=== PATIENT | male | born 1945 | race Caucasian/White ===

== ENCOUNTER 2016-10-08 08:08 | Day surgery (SDC) | payer MEDICARE, BC ==
[2016-10-08] MEDS ORDERED: Lactated Ringers 1,000 ML IV SCH (08:45)
[2016-10-08] MEDS ORDERED: fentaNYL 100 MCG/2 ML SDV ONE (09:03)
[2016-10-08] MEDS ORDERED: Propofol 200 MG/20 ML SDV ONE (09:04)
[2016-10-08] MEDS ORDERED: Midazolam 1 MG/ML 2 ML SDV ONE (09:04)
[2016-10-08] MEDS ORDERED: Ampicillin 2 GM in Sodium Chloride 0.9% 100 ML IV ONE (09:15)
[2016-10-08 10:29] VITALS: BP 121/79
--- NOTE | 2016-10-09 08:23 | OR ---
DATE OF PROCEDURE: 10/08/2016 PREOPERATIVE DIAGNOSIS: History of colon polyps. POSTOPERATIVE DIAGNOSES: 1. Rectal polyp. 2. History of colon polyps. PROCEDURE PERFORMED: Colonoscopy to the cecum with biopsy resection of small rectal polyp. SURGEON: Tommy Norton MD ANESTHESIA: IV anesthesia with monitored anesthesia care. INDICATION: This 71-year-old white male is here for a colonoscopy because of a history of colon polyps. His last colonoscopic exam was done three years ago. I counseled him for the procedure including risks and alternatives, and he gave his informed consent to proceed. DESCRIPTION OF PROCEDURE: The patient was placed in the left lateral decubitus position. IV anesthesia was administered by the Anesthesia Service. Time-out was held. A rectal exam was performed, which was unremarkable. The flexible video Olympus colonoscope was introduced through his anus, up his rectum, and out his colon all the way to the cecum. Once the cecum was reached, the scope was slowly withdrawn examining the mucosa throughout. No mucosal abnormalities were noted until we reached the rectum. Here, we saw a small polyp which was removed with a few bites of the biopsy forceps. The scope was retroflexed with the distal rectum appearing unremarkable save for some hemorrhoid tissue. The scope was straightened and removed. He tolerated the procedure well. Tommy Norton MD /[id number] MTDD
== END 2016-10-08 10:47 | disposition home or self-care (01) ==
LOC: JP.SDS 08:08 → EEVIPCON 08:08 → JP.SDS 10:47
PROVIDERS: ATTEND Surgery
DX: Z12.11 Encounter for screening for malignant neoplasm of colon (principal); Z86.010 Personal history of colon polyps; K62.1 Rectal polyp; Z88.1 Allergy status to other antibiotic agents
CPT/HCPCS: 45380; 88305; J0290; J2250; J2704; J3010; J7030; J7120

== ENCOUNTER 2020-10-10 19:45 | Emergency (ER) | payer MEDICARE, BC ==
[2020-10-10 20:30] VITALS: BP 188/67; PULSE 68
--- NOTE | 2020-10-10 22:18 | EDM.PDOC ---
ED HPI GENERAL MEDICAL PROBLEM - General Chief Complaint: General Stated Complaint: POSSIBLE BLOOD CLOT IN THIGH RIGHT LEG Time Seen by Provider: 10/10/20 20:30 Source of Information: Reports: Patient, Family History Limitations: Reports: No Limitations - History of Present Illness INITIAL COMMENTS - FREE TEXT/NARRATIVE: 75-year-old male arrives with concerns about pain in his right leg. He was sitting on a chair tonight when he suddenly developed a very sharp pain in his right buttock and right posterior thigh, then after a few minutes developed numbness in his leg. He got up and walked around a little bit, and sat down again and waited thinking it would go away but it was persistent and he started worrying about a blood clot so came in to be seen. 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 No peripheral edema. Still somewhat sore in the posterior right thigh and popliteal area. Onset: Sudden (Pain started fairly suddenly about 3 hours ago, much improved now) Location: Reports: Lower Extremity, Right Associated Symptoms: Denies: Chest Pain, Fever/Chills, Nausea/Vomiting, Shortness of Breath, Weakness Right Thigh Pain Score (Numeric/FACES): 7 - Related Data Allergies Allergy/AdvReac Type Severity Reaction Status Date / Time clindamycin Allergy Cannot Verified 10/10/20 20:22 Remember Home Meds: Home Meds Aspirin [Ecotrin EC] 325 mg PO DAILY 03/15/13 [History] Fluticasone Propionate [Flovent] 2 spray IH DAILY 03/15/13 [History] Metoprolol Succinate [Toprol XL 100mg] 100 mg PO DAILY 03/15/13 [History] Terazosin [Hytrin] 5 mg PO DAILY 03/15/13 [History] amLODIPine [Norvasc] 10 mg PO DAILY 03/15/13 [History] Multivitamin [Multivitamins] 1 each PO DAILY 10/28/13 [History] Albuterol [Ventolin HFA] 2 puff INH QID 10/06/16 [History] Fluticasone/Salmeterol [Advair Diskus 100-50] 1 puff INH BID 10/06/16 [History] atorvaSTATin [Lipitor] 40 mg PO DAILY 10/06/16 [History] Past Medical History HEENT History: Reports: Impaired Vision Cardiovascular History: Reports: Arrhythmia, CAD, High Cholesterol, Hypertension Respiratory History: Reports: COPD, SOB Gastrointestinal History: Reports: Colon Polyp Genitourinary History: Reports: BPH Musculoskeletal History: Reports: Arthritis, Fracture - Infectious Disease History Infectious Disease History: Reports: Chicken Pox, Measles, Mumps, Novel Coronavirus - Past Surgical History HEENT Surgical History: Reports: Naso-Sinus Surgery, Polypectomy, Other (See Below) Other HEENT Surgeries/Procedures: broken jaw surgery Cardiovascular Surgical History: Reports: None, Coronary Artery Stent Other Cardiovascular Surgeries/Procedures: aortic bifemerol Respiratory Surgical History: Reports: None GI Surgical History: Reports: None, Colonoscopy, Hernia, Abdominal, Polypectomy Male Surgical History: Reports: None Musculoskeletal Surgical History: Reports: None, Other (See Below) Other Musculoskeletal Surgeries/Procedures:: finger Social & Family History - Tobacco Use Tobacco Use Status *Q: Never Tobacco User - Caffeine Use Caffeine Use: Reports: Coffee - Alcohol Use Number of Drinks Per Day: 3 ED ROS GENERAL - Review of Systems Review Of Systems: See Below Constitutional: Denies: Fever, Chills HEENT: Reports: No Symptoms Respiratory: Reports: No Symptoms Cardiovascular: Reports: No Symptoms GI/Abdominal: Reports: No Symptoms Skin: Denies: Bruising, Rash, Erythema Neurological: Reports: Paresthesia (Numbness in his right leg is improving but still some perception of lack of sensation) ED EXAM, GENERAL - Physical Exam Exam: See Below Exam Limited By: No Limitations General Appearance: Alert, No Apparent Distress Respiratory/Chest: No Respiratory Distress, Lungs Clear Cardiovascular: Regular Rate, Rhythm Extremities: Other (On palpation the patient does have some soreness in the lower aspect of the right buttock into the right thigh but no asymmetry to the left leg, no erythema or bruising. Sensation is objectively intact to the foot and there is no peripheral edema) Neurological: Alert, Oriented, No Motor/Sensory Deficits Psychiatric: Normal Affect, Normal Mood Skin Exam: Warm, Dry Course - Vital Signs Last Recorded V/S: Last Vital Signs Temp 98.2 F 10/10/20 20:24 Pulse 68 10/10/20 20:29 Resp 20 10/10/20 20:29 BP 188/67 H 10/10/20 20:29 Pulse Ox 92 L 10/10/20 20:29 - Orders/Labs/Meds Orders: Active Orders 24 hr Category Date Time Status VL Duplex Lwr Ext Veins Ltd Rt [US] Stat Exams 10/10/20 20:59 Taken - Re-Assessments/Exams Free Text/Narrative Re-Assessment/Exam: 10/11/20 05:45 I had the patient ambulate about the room which she did without difficulty. Ultrasound was called in and is negative for DVT. I think this patient had some type of muscle spasm which put some pressure on the nerve causing his paresthesias, symptoms are improving. I encouraged him to increase activity as tolerated and return if symptoms are persistent or worsening. Departure - Departure Time of Disposition: 22:24 Disposition: Home, Self-Care 01 Clinical Impression: Leg pain, right - Discharge Information Instructions: Leg Cramps Referrals: Abdirahman Holden MD [Primary Care Provider] - Forms: ED Department Discharge Care Plan Goals: Continue activity as tolerated, return if symptoms recur and are persistent and you have uncontrolled pain or worsening weakness. Sepsis Event Note (ED) - Evaluation Sepsis Screening Result: No Definite Risk - Focused Exam Vital Signs: Vital Signs Temp Pulse Resp BP Pulse Ox 10/10/20 20:29 68 20 188/67 H 92 L 10/10/20 20:24 98.2 F 74 23 H 189/69 H 91 L 10/10/20 20:16 98.2 F 74 23 H 189/69 H 91 L - My Orders Last 24 Hours: My Active Orders 10/10/20 20:59 VL Duplex Lwr Ext Veins Ltd Rt [US] Stat - Assessment/Plan Last 24 Hours: My Active Orders 10/10/20 20:59 VL Duplex Lwr Ext Veins Ltd Rt [US] Stat
--- NOTE | 2020-10-11 08:47 | US ---
VL Duplex Lwr Ext Veins Ltd Rt INDICATION: pain numbness in leg FINDINGS: Ultrasound examination of the lower extremity using Doppler and compressive technique demonstrates that the common femoral, femoral, and popliteal veins are patent, and negative for thrombus. The calf veins were segmentally visualized and are negative where seen. IMPRESSION: Negative for deep venous thrombosis.
== END 2020-10-10 22:25 | disposition home or self-care (01) ==
LOC: JP.ED 19:45
DX: M79.604 Pain in right leg (principal); I25.10 Atherosclerotic heart disease of native coronary artery without angina pectoris; I10 Essential (primary) hypertension; E78.00 Pure hypercholesterolemia, unspecified; J44.9 Chronic obstructive pulmonary disease, unspecified; Z79.82 Long term (current) use of aspirin; Z79.899 Other long term (current) drug therapy; Z86.16 Personal history of COVID-19; Z88.1 Allergy status to other antibiotic agents
CPT/HCPCS: 93971-26; 93971-RT; 99284-25

== ENCOUNTER 2020-12-10 15:23 | Emergency (ER) | payer MEDICARE, BC ==
[2020-12-10] MEDS ORDERED: Sodium Chloride 0.9% 10 ML Syringe FLUSH PRN (16:01)
--- NOTE | 2020-12-10 16:05 | EDM.PDOC ---
<OfficerJ Luis - Last Filed: 12/10/20 16:02> ED HPI GENERAL MEDICAL PROBLEM - General Chief Complaint: General Stated Complaint: [facility] CT DONE DUE TO BLEEDING FROM SURGERY Time Seen by Provider: 12/10/20 15:25 Source of Information: Reports: Patient, Family History Limitations: Reports: No Limitations - History of Present Illness INITIAL COMMENTS - FREE TEXT/NARRATIVE: 75-year-old gentleman presents emergency department day complaint of bleeding from his access site from his recent endograft it seems to happen more at night he describes building up pressure and a bulge then will start to bleed bleeds profusely after he lies down the bleeding does not stop but it has been recurring now for the last several days. No fevers no nausea vomiting or shortness of breath or chest pain. He did have some blood work done in the clinic shows a hemoglobin at 9.4 and INR of 1.9, I did receive a call from Destiny Manzano who is a physician bacteriology research assistant at the vascular department [facility] who did the surgical intervention on him he recently had endograft revision this was done about 1 month ago, recommended the following study CTA of abdomen pelvis. - Related Data Allergies Allergy/AdvReac Type Severity Reaction Status Date / Time clindamycin Allergy Cannot Verified 10/10/20 20:22 Remember Home Meds: Home Meds Aspirin [Ecotrin EC] 325 mg PO DAILY 03/15/13 [History] Fluticasone Propionate [Flovent] 2 spray IH DAILY 03/15/13 [History] Metoprolol Succinate [Toprol XL 100mg] 100 mg PO DAILY 03/15/13 [History] Terazosin [Hytrin] 5 mg PO DAILY 03/15/13 [History] amLODIPine [Norvasc] 10 mg PO DAILY 03/15/13 [History] Multivitamin [Multivitamins] 1 each PO DAILY 10/28/13 [History] Albuterol [Ventolin HFA] 2 puff INH QID 10/06/16 [History] Fluticasone/Salmeterol [Advair Diskus 100-50] 1 puff INH BID 10/06/16 [History] atorvaSTATin [Lipitor] 40 mg PO DAILY 10/06/16 [History] Warfarin [Coumadin] 3.5 mg PO DAILY 12/10/20 [History] Warfarin [Coumadin] 4 mg PO DAILY 12/10/20 [History] Past Medical History HEENT History: Reports: Impaired Vision Cardiovascular History: Reports: Arrhythmia, CAD, High Cholesterol, Hypertension Respiratory History: Reports: COPD, SOB Gastrointestinal History: Reports: Colon Polyp Genitourinary History: Reports: BPH Musculoskeletal History: Reports: Arthritis, Fracture - Infectious Disease History Infectious Disease History: Reports: Chicken Pox, Measles, Mumps, Novel Coronavirus - Past Surgical History HEENT Surgical History: Reports: Naso-Sinus Surgery, Polypectomy, Other (See Below) Other HEENT Surgeries/Procedures: broken jaw surgery Cardiovascular Surgical History: Reports: None, Coronary Artery Stent Other Cardiovascular Surgeries/Procedures: aortic bifemerol Respiratory Surgical History: Reports: None GI Surgical History: Reports: None, Colonoscopy, Hernia, Abdominal, Polypectomy Male Surgical History: Reports: None Musculoskeletal Surgical History: Reports: None, Other (See Below) Other Musculoskeletal Surgeries/Procedures:: finger Social & Family History - Tobacco Use Tobacco Use Status *Q: Never Tobacco User - Caffeine Use Caffeine Use: Reports: Coffee, Soda, Tea - Recreational Drug Use Recreational Drug Use: No ED ROS GENERAL - Review of Systems Review Of Systems: See Below Constitutional: Reports: No Symptoms Respiratory: Reports: No Symptoms Cardiovascular: Reports: No Symptoms GI/Abdominal: Reports: No Symptoms Skin: Reports: Wound ED EXAM, GENERAL - Physical Exam Exam: See Below Free Text/Narrative:: Examination the wound I do not appreciate any bleeding at this time there is no specific tender to the touch however it does have a lot of ecchymosis around the entrance site Exam Limited By: No Limitations General Appearance: Alert, WD/WN, No Apparent Distress Respiratory/Chest: No Respiratory Distress Departure - Departure Disposition: DC/Tfer to Hospice-Med Fac 51 Clinical Impression: Postprocedural hemorrhage and hematoma of skin and subcutaneous tissue following dermatologic procedure, Acute blood loss anemia - Discharge Information Referrals: Abdirahman Holden MD [Primary Care Provider] - Forms: ED Department Discharge Care Plan Goals: Patient is to be urgently transferred by air to the [facility] for further evaluation and stabilization of a persistent hemorrhage of the right groin following a recent vascular procedure. <Aiden Covington - Last Filed: 12/10/20 23:19> Course - Vital Signs Last Recorded V/S: Last Vital Signs Temp 97.5 F 12/10/20 21:02 Pulse 78 12/10/20 21:02 Resp 14 12/10/20 21:02 BP 132/60 12/10/20 21:02 Pulse Ox 95 12/10/20 21:02 - Orders/Labs/Meds Orders: Active Orders 24 hr Category Date Time Status Peripheral IV Insertion Adult [OM.PC] Urgent Oth 12/10/20 16:00 Ordered Labs: Laboratory Tests 12/10/20 12/10/20 Range/Units 16:14 19:14 WBC 9.0 (4.5-11.0) K/uL RBC 2.92 L (4.30-5.90) M/uL Hgb 8.1 L (12.0-15.0) g/dL Hct 26.6 L (40.0-54.0) % MCV 91 (80-98) fL MCH 28 (27-31) pg MCHC 31 L (32-36) % Plt Count 269 (150-400) K/uL Sodium 140 (140-148) mmol/L Potassium 4.1 (3.6-5.2) mmol/L Chloride 103 (100-108) mmol/L Carbon Dioxide 26 (21-32) mmol/L Anion Gap 11.2 (5.0-14.0) mmol/L BUN 18 (7-18) mg/dL Creatinine 1.6 H (0.8-1.3) mg/dL Est Cr Clr Drug Dosing 43.14 mL/min Estimated GFR (MDRD) 42 L (>60) Glucose 126 H (74-106) mg/dL Calcium 8.3 L (8.5-10.1) mg/dL Meds: Medications Discontinued Medications Generic Name Dose Route Start Last Admin Trade Name Freq PRN Reason Stop Dose Admin Amoxicillin/Clavulanate Potassium 1 tab 12/10/20 21:07 12/10/20 21:23 Amoxicillin/Clavulanate K 875-125 Mg Tab PO 12/10/20 21:08 1 tab ONETIME ONE Administration Sodium Chloride 1,000 mls @ 500 mls/hr 12/10/20 16:15 12/10/20 17:33 Normal Saline IV 500 mls/hr ASDIRECTED OFELIA Administration Sodium Chloride 100 mls @ 3.5 mls/sec 12/10/20 16:45 12/10/20 17:01 Normal Saline IV 12/10/20 21:00 4 mls/sec ASDIRECTED OFELIA Administration Iopamidol 78 ml 12/10/20 16:45 12/10/20 17:00 Iopamidol 755 Mg/Ml 100 Ml Bottle IV 12/10/20 21:00 78 ml . DIRECTED OFELIA Administration Sodium Chloride 10 ml 12/10/20 16:01 Sodium Chloride 0.9% 10 Ml Syringe FLUSH ASDIRECTED PRN Keep Vein Open Sodium Chloride 10 ml 12/10/20 16:41 12/10/20 17:01 Sodium Chloride 0.9% 10 Ml Syringe FLUSH 12/10/20 16:42 10 ml ONETIME ONE Administration - Re-Assessments/Exams Free Text/Narrative Re-Assessment/Exam: 12/10/20 19:16 Care turned over from Officer pending the review of the CT angiogram by [facility]. They did call back and requested that he stop his Coumadin, start on Augmentin, and recheck at [place] next week. However just talking with the patient about the plan, he started bleeding fairly briskly again and felt lightheaded. A repeat hemogram was ordered. I did discuss this with our surgery, they were uncomfortable with doing any procedures on this gentleman as he likely needs interventional radiology and special packing material. If his hemoglobin has dropped significantly, he may need to be transferred to [place]. 12/10/20 21:07 Hemoglobin is dropped to 8.1, we were in the process of trying to get him home and he was comfortable driving down the [facility] tomorrow, however he started bleeding briskly again. Several more phone calls were made to [facility] and he was accepted for transfer. He will be flown and will be a direct admit, this is partly for continuity of care, complexity of the patient situation, and the fact that [facility] are not accepting any inpatient admissions. Departure - Departure Time of Disposition: 22:02 Sepsis Event Note (ED) - Focused Exam Vital Signs: Vital Signs Temp Pulse Resp BP Pulse Ox 12/10/20 21:02 97.5 F 78 14 132/60 95 12/10/20 20:45 82 18 121/61 95 12/10/20 18:06 71 142/58 H 93 L 12/10/20 17:16 91 22 H 174/70 H 97 12/10/20 16:47 97.6 F 94 16 109/37 L 97 12/10/20 15:34 97.6 F 94 16 109/37 L 97
[2020-12-10] MEDS ORDERED: Sodium Chloride 0.9% 1,000 ML IV SCH (16:15)
[2020-12-10] MEDS ORDERED: Sodium Chloride 0.9% 100 ML IV SCH (16:45)
[2020-12-10] MEDS ORDERED: Iopamidol 755 Mg/ML 100 ML Bottle IV SCH (16:45)
[2020-12-10] MEDS: Sodium Chloride 0.9% 10 ML Syringe FLUSH ONE ×2 (16:47→17:01)
--- NOTE | 2020-12-10 17:40 | CRLCT ---
For Patients: As a result of the 21st Century Cures Act, medical imaging exams and procedure reports are released immediately into your electronic medical record. You may view this report before your referring provider. If you have questions, please contact your health care provider. INDICATION: Bleeding through groin after recent endograft. TECHNIQUE: CTA of the abdomen and pelvis with 78 cc Isovue 370 IV contrast. Coronal and sagittal reconstructions. 3D post processing was performed. COMPARISON: CT of the abdomen 10/13/2018. FINDINGS: Evaluation of the solid organs is somewhat limited by arterial phase of contrast. Stable 1.2 cm arterial enhancing lesion in the left hepatic lobe segment 2 (series 6, image 11). This is most likely benign such as flash filling hemangioma or FNH. The gallbladder, spleen, pancreas, and adrenal glands are negative. No biliary dilation. Symmetric enhancement of the kidneys. Stable right renal cyst. No hydronephrosis or ureteral dilation. No obstructing urinary calculi. The bladder is normal in appearance. Mildly enlarged prostate gland with calcifications. No bowel dilation. Negative appendix. No intraperitoneal free air or fluid. Multiple tiny fat containing ventral hernias superior to the umbilicus. Postsurgical changes of lower anterior abdominal wall. Multiple mildly prominent right inguinal lymph nodes may be reactive. No other lymphadenopathy within the abdomen or pelvis. Degenerative changes of the spine and left hip. Aortoiliac vascular calcifications. Stents within occluded bilateral iliac arteries. Status post aortobifemoral bypass graft. The abdominal aorta is normal in caliber. The graft appears patent. There is ectasia of femoral portion of the graft bilaterally, measuring 1.8 cm on the right and 2.1 cm on the left. Ill-defined density in the right groin about the graft and extending to the skin surface may represent hematoma (series 6, image 126). No active extravasation or pseudoaneurysm identified. No focal fluid collection. The celiac artery, superior mesenteric artery, and bilateral renal arteries are patent. Surgical clips about the left renal artery. Linear atelectasis or scarring in the lung bases bilaterally. Stable 3 mm noncalcified pulmonary nodule in the lateral left lower lobe (series 6, image 9). This is unchanged since 2019 and should be benign. Resolution of a previously seen 6 mm left lower lobe nodule. IMPRESSION: 1. Status post aortobifemoral bypass graft. The graft appears patent. There is ectasia of the femoral portion of the graft bilaterally, greater on the left. 2. Ill-defined density within the right groin about the graft and extending to the skin surface may represent hematoma. No active extravasation or pseudoaneurysm identified. No focal fluid collection. 3. No other acute findings within the abdomen or pelvis. Please note that all CT scans at this facility use dose modulation, iterative reconstruction, and/or weight-based dosing when appropriate to reduce radiation dose to as low as reasonably achievable. Dictated by Aimee Montgomery MD @ 12/10/2020 5:40:[address] Aimee Montgomery @ Dec 10 2020 5:40PM
[2020-12-10 21:03] VITALS: BP 132/60; PULSE 78
[2020-12-10] MEDS ORDERED: Amoxicillin/Clavulanate K 875-125 MG Tab PO ONE (21:07)
== END 2020-12-10 22:02 | disposition hospice, inpatient (51) ==
LOC: JP.ED 15:23
DX: L76.31 Postprocedural hematoma of skin and subcutaneous tissue following a dermatologic procedure (principal); L76.21 Postprocedural hemorrhage of skin and subcutaneous tissue following a dermatologic procedure; D62 Acute posthemorrhagic anemia; I25.10 Atherosclerotic heart disease of native coronary artery without angina pectoris; E78.00 Pure hypercholesterolemia, unspecified; I10 Essential (primary) hypertension; J44.9 Chronic obstructive pulmonary disease, unspecified; N40.0 Benign prostatic hyperplasia without lower urinary tract symptoms; M19.90 Unspecified osteoarthritis, unspecified site; Z88.1 Allergy status to other antibiotic agents; Z79.82 Long term (current) use of aspirin; Z79.01 Long term (current) use of anticoagulants; Z79.899 Other long term (current) drug therapy
CPT/HCPCS: 36415; 74174; 80048; 85027; 99285; A9270; J7030; Q9967

== ENCOUNTER 2021-11-14 06:24 | Day surgery (SDC) | payer MEDICARE, BC ==
[2021-11-14] MEDS ORDERED: Midazolam 1 MG/ML 2 ML SDV ONE (07:06)
[2021-11-14] MEDS ORDERED: fentaNYL 100 MCG/2 ML SDV ONE (07:06)
[2021-11-14] MEDS ORDERED: Propofol 200 MG/20 ML SDV ONE (07:06)
[2021-11-14 08:36] VITALS: PULSE 54
[2021-11-14] MEDS ORDERED: Lactated Ringers 1,000 ML IV SCH (09:45)
[2021-11-14 09:47] VITALS: BP 163/60
== END 2021-11-14 09:30 | disposition home or self-care (01) ==
LOC: JP.SDS 06:24
PROVIDERS: ATTEND Family Medicine
DX: Z12.11 Encounter for screening for malignant neoplasm of colon (principal); D12.2 Benign neoplasm of ascending colon; D12.3 Benign neoplasm of transverse colon; E78.00 Pure hypercholesterolemia, unspecified; I10 Essential (primary) hypertension; I25.10 Atherosclerotic heart disease of native coronary artery without angina pectoris; I73.9 Peripheral vascular disease, unspecified; Z88.1 Allergy status to other antibiotic agents
CPT/HCPCS: 45381; 45385; J2250; J2704; J3010; J7120